=== PATIENT | female | born 1990 | race Hispanic/Latino ===

== ENCOUNTER 2016-08-21 06:30 | Inpatient (IN) | payer MEDICAID, OTHER ==
[~2016-08-21] VITALS: Ht 154.9 cm; Wt 86.6 kg
[2016-08-21] MEDS ORDERED: Lactated Ringer's 1,000 ML IV PRN (07:08)
[2016-08-21] MEDS ORDERED: Oxytocin 10 Unit/mL Inj IM PRN ×2 (07:10→08:55)
[2016-08-21] MEDS ORDERED: Carboprost 250 mCg/mL Inj IM PRN ×2 (07:10→08:55)
[2016-08-21] MEDS ORDERED: Sodium Chloride LOK Flush 10 mL Syringe IVFLUSH PRN (07:10)
[2016-08-21] MEDS ORDERED: Methylergonovine 0.2 mg/mL Inj IM PRN ×2 (07:10→08:55)
[2016-08-21] MEDS ORDERED: fentaNYL-PF 50 mCg/mL 2 mL Inj IVPUSH PRN (07:10)
[2016-08-21] MEDS ORDERED: Hemorrhage Kit, Post Partum XX ONE ×2 (07:10→08:55)
[2016-08-21] MEDS ORDERED: Oxytocin 30 Units/500 mL LR 30 UNITS in IV Premix 1 EACH IV PRN (07:10)
[2016-08-21 07:56] LABS: Mean Corpuscular Hemoglobin 24.5 pg (27.0-35.0); Mean Corpuscular Volume 76.6 fL (81-100)
[2016-08-21] MEDS: Lactated Ringer's 1,000 ML IV SCH ×2 (08:51→16:51)
[2016-08-21] MEDS ORDERED: LANOlin HPA 7 Gm Ointment TOPICAL PRN (08:55)
[2016-08-21] MEDS ORDERED: HYDROcodone-APAP 5-325 mg Tablet PO PRN (08:55)
[2016-08-21] MEDS ORDERED: Benzocaine (Dermoplast) 20% 60 Gm Spray TOPICAL PRN (08:55)
--- NOTE | 2016-08-21 09:04 | HP ---
[address] [address] HISTORY AND PHYSICAL PATIENT: EDWARDO VALDEZ : 1990 MR#: [id number] ADMIT: 08/21/2016 JOB ID: [id number] CHIEF COMPLAINT: Rupture of membranes. HISTORY OF PRESENT ILLNESS: A 25-year-old, 2, para 0, EAB 1, with a due date of August 27, 2016 presents at 39 1/7 weeks gestation with rupture of membrane. She has had some pink-tinged clear fluid since about 5 o'clock this morning. She was admitted to the Center and then rapidly became uncomfortable with a strong urge to push, was found to be completely dilated and I was contacted to come in. ISSUES: 1. Excess weight. 2. Mild anemia at 28 weeks. CURRENT MEDICATIONS: 1. Ferrous sulfate 325 mg daily. 2. vitamins 1 tablet daily. ALLERGIES: None known. LABORATORIES: Blood type O positive. Rubella immune. Serology not reactive. Hepatitis B surface antigen, hepatitis C, and HIV negative. Hematocrit at 28 weeks was 34.2, and antibody screen at the onset of was negative. Her Pap was normal in January of 2016. An A1c in the beginning of was 5.3. Her TSH was 0.644. Her urine culture in June of last year showed mixed wicho. Gonorrhea and Chlamydia cultures were negative in January of 2016. She is varicella immune. A quad screen was normal in January of 2016. Twenty-eight week glucose tolerance test showed a fasting of 71, a 1 hour of 130, a 2 hour 98. She is GBS negative screened July 27, 2016. SOCIAL HISTORY: She is in a long-term relationship with a male partner. Is a nonsmoker and does not drink alcohol. PHYSICAL EXAMINATION: Please see nursing notes for admitting vitals. She is an actively uncomfortable laboring woman whose fetus is vertex, +2 station, 100% effaced, with a bit of labial separation when she bears down. heart tracing shows a baseline in the 130s with good variability. ASSESSMENT: 1. Gravid at term. 2. Rapid progress of labor. She is now completely dilated with a strong urge to push. 3. GBS negative. PLAN: The patient went on to deliver as below. DELIVERY NOTE: Delivery position: LUCIANO. Delivery weight: 3364 grams (7 pounds 7 ounces) . Apgars: 9 and 9. Umbilical cord: Three-vessel cord. Somewhat thin/flimsy but otherwise normal length and appearance. Placenta: Central cord insertion. No evidence of retained fragments. Normal appearance. EBL: 350 cc. Anesthesia: Lidocaine for repair. Lacerations: Second-degree perineal. Complications: None. The patient was complete as per note above. She had a strong urge to push. She pushed only a few minutes, bringing the head down in LUCIANO position. No nuchal cord was identified. Shoulders delivered easily and infant cried almost immediately after delivery. Cord was clamped after a 2 minute delay and cord blood collected and sent. Placenta delivered with gentle traction on the cord a few minutes later. Perineum was inspected and showed a second-degree perineal tear repaired with 2-0 Vicryl in a standard fashion after injection 10 cc of 1% lidocaine around the site. Fundus is firm after delivery and IV oxytocin is being instituted. Bleeding is slowing. Patient plans to breast feed. Rectal examination after her repair showed an intact sphincter with normal tone. Sponge and needle counts were correct after delivery. [facility]
[2016-08-21] MEDS: Witch Hazel-Glycerin Pads TOPICAL PRN (09:09)
[2016-08-22] MEDS: Lactated Ringer's 1,000 ML IV SCH ×2 (00:51→08:51)
[2016-08-22] MEDS: Witch Hazel-Glycerin Pads TOPICAL PRN (06:07)
[2016-08-22 07:16] LABS: Mean Corpuscular Hemoglobin 24.4 pg (27.0-35.0); Mean Corpuscular Volume 77.3 fL (81-100)
[2016-08-22] MEDS ORDERED: Ascorbic Acid 500 mg Tablet PO SCH (10:48)
--- NOTE | 2016-08-22 11:04 | PCM.DIOB ---
Obstetrical Disch Instruction Date of Service: Aug 22, 2016 Dates of Hospitalization Date of Hospital Admission Aug 21, 2016 at 06:45 Providers Admitting Physician: Marvin Ellington MD Primary Care Physician: Anthony Llanes Attending Physician: Marvin Ellington MD Discharge Diagnosis Problems: (1) Encounter for full-term uncomplicated delivery Status: Acute ICD Code: O80 Diet Discharge Diet: No restrictions Activity Discharge Activity-General: Pelvic Rest for 6 weeks, Be up and about, Balance rest and activity Dressing and Incisional Care Hygiene: May shower Follow Up Plan Follow-up Provider (F9): Marvin Ellington MD Follow-up appointment: Weeks (6) Call your provider for: Fever or Chills, Shortness of breath, Heavy vaginal bleeding, Excessive constipation, Red painful breasts Marvin Ellington MD Aug 22, 2016 11:04
[2016-08-22] MEDS ORDERED: PREN-12 PO (11:07)
[2016-08-22] MEDS ORDERED: FERR-74 PO (11:07)
[2016-08-22] MEDS ORDERED: IBUP-1827 PO (11:07)
[2016-08-22] MEDS ORDERED: Ascorbic Acid PO (11:07)
[2016-08-22] MEDS ORDERED: DOCU-41 PO (11:07)
[2016-08-22 12:46] VITALS: BP 109/60; PULSE 110; RESP 18
--- NOTE | 2016-08-22 19:12 | DIS ---
[address] [address] DISCHARGE SUMMARY PATIENT: EDWARDO VALDEZ : 1990 MR#: [id number] ADMIT: 08/21/2016 JOB ID: [id number] DIS: 08/22/2016 DISCHARGE DIAGNOSES: 1. Spontaneous vaginal delivery at 39 1/7 weeks gestation. 2. Second-degree perineal tear. 3. Acute anemia, , related to blood loss from delivery. 4. Excess weight. ALLERGIES: None known. DISCHARGE MEDICATIONS: 1. vitamins 1 tablet daily. 2. Ferrous sulfate 325 mg twice daily for 6 weeks. 3. Docusate sodium 100 mg p.o. b.i.d. p.r.n. constipation. 4. Vitamin C 500 mg p.o. b.i.d for 6 weeks. 5. Ibuprofen 600 mg q.6 h. p.r.n. pain. DISCHARGE INSTRUCTIONS: 1. Activity ad megan. 2. Diet ad megan. 3. Pelvic rest for six weeks given second-degree perineal laceration. 4. Call for increased bleeding, fevers, breast tenderness, excess constipation, etc. 5. Follow up in six weeks with Dr. Ellington. HOSPITAL COURSE: The patient is a 25-year-old now 2, para 1, EAB 1 who presented at 39 1/ 7 weeks with rupture of membranes about 5 a.m. She rapidly progressed to complete, pushed only a few minutes and delivered a 7 pound 7 ounce viable female in LUCIANO position sustaining a second-degree perineal tear. , she is caring for her well. Her lochia is slowing. Her hematocrit did drop from an initial value of 34.7 to 26.9, hemoglobin 11.1 to 8.5. I will continue her on iron twice daily for six weeks. She will follow up in my office in six weeks, sooner if issues. She has good social support. [facility]
== END 2016-08-22 16:40 | disposition home or self-care (01) | DRG 775 ==
LOC: FBCO 06:30 → FBC 06:45
PROVIDERS: ADMIT Family Medicine; ATTEND Family Medicine
PROC: 10E0XZZ Delivery of Products of Conception, External Approach (ICD-10-PCS; principal; 2016-08-21)
PROC: 0KQM0ZZ Repair Perineum Muscle, Open Approach (ICD-10-PCS; 2016-08-21)
DX: O70.1 Second degree perineal laceration during delivery (principal); Z37.0 Single live birth; I10 Essential (primary) hypertension; Z3A.39 39 weeks gestation of pregnancy; O26.03 Excessive weight gain in pregnancy, third trimester; O90.81 Anemia of the puerperium; D64.9 Anemia, unspecified